=== PATIENT | female | born 1995 | race Caucasian/White ===

== ENCOUNTER → 2021-03-23 | Outpatient (CLI) | payer BC ==
[~2021-03-23] MED LIST: ALPR0.25 PO; ALPR1TAB2 PO; ASP325TEC PO; Acetaminophen PO; Diazepam PO; FERR-57 PO; FERR159T2 PO; Ferrous Sulfate PO; IBP600T1 PO; LEVO75TA PO; LVT.05T PO; OXC5T PO; SENN1TAB76 PO; ZOLP10TA5 PO
--- NOTE | 2021-03-23 16:13 | Diagnostic Imaging Report ---
INDICATION: Pain. EXAMINATION: Left ankle, 03/23/2021. FINDINGS: There is soft tissue swelling about the ankle. The ankle mortise and talar dome appear intact. There is no fracture or dislocation. IMPRESSION: Diffuse soft tissue swelling with no acute fracture or dislocation appreciated. If there is continued pain or patient cannot bear weight, 7-10 day follow-up recommended. Dictated by: Dictated on workstation # [id number]
== END ==
LOC: RAD 13:51
PROVIDERS: ATTEND Nurse Practitioner Family
DX: M25.472 Effusion, left ankle (principal); M25.572 Pain in left ankle and joints of left foot
CPT/HCPCS: 73610

== ENCOUNTER 2021-07-16 10:24 | Outpatient (CLI) | payer BC ==
[~2021-07-16] VITALS: Ht 165.1 cm; Wt 115.7 kg
[2021-07-16 10:20] VITALS: BP 133/81
[2021-07-16 10:27] VITALS: BP 123/95
[2021-07-16] MEDS ORDERED: diphenhydrAMINE 50 MG/ML INJ (BENADRYL) IV PRN (10:30)
[2021-07-16] MEDS ORDERED: ONDANSETRON 4 MG/2 ML (SDV) Z0FRAN IV PRN (10:30)
[2021-07-16] MEDS ORDERED: SOTROVIMAB 500 MG/NS 100 ML IVPB IV ONE ×2 (10:30)
[2021-07-16] MEDS ORDERED: ACETAMINOPHEN 500 MG TAB (TYLENOL) PO PRN (10:30)
[2021-07-16] MEDS ORDERED: EPINEPHrine INJECTION 1 MG/ML AMP IM PRN (10:30)
[2021-07-16 11:44] VITALS: BP 129/95
== END 2021-07-16 11:50 ==
LOC: INFUSION 10:24
PROVIDERS: ATTEND Physician Assistant
DX: U07.1 COVID-19 (principal); E66.9 Obesity, unspecified

== ENCOUNTER → 2022-06-20 | Outpatient (CLI) | payer BC ==
--- NOTE | 2022-06-20 15:23 | Diagnostic Imaging Report ---
PROCEDURE: Pelvic comp/transvaginal sonogram. TECHNIQUE: Complete transabdominal and transvaginal pelvic ultrasound was performed. In addition, limited pelvic Doppler was performed. INDICATION: Pelvic pain. Uterus is anteverted measuring 7.6 x 3.4 x 4.4 cm. Endometrium is 4 mm in thickness. No myometrial mass is detected. Right ovary measures 3.4 x 2.4 x 2.6 cm and the left ovary measures 3.1 x 1.8 x 2.5 cm. Both ovaries contain follicles. Both ovaries demonstrate normal blood flow. No adnexal mass or free fluid is detected. IMPRESSION: Unremarkable transabdominal and transvaginal pelvic ultrasound with limited pelvic Doppler. Dictated by: Dictated on workstation # [id number]
== END ==
LOC: RAD 13:34
PROVIDERS: ATTEND Surgery
DX: N93.8 Other specified abnormal uterine and vaginal bleeding (principal)
CPT/HCPCS: 76830; 76856

== ENCOUNTER 2022-08-20 05:35 | Outpatient (CLI) | payer BC ==
[~2022-08-20] VITALS: Ht 165.1 cm; Wt 93.2 kg
[2022-08-20] MEDS ORDERED: SEMA3TAB4 PO (14:34)
[2022-08-20] MEDS ORDERED: DIVA125T2 PO (14:34)
[2022-08-20] MEDS ORDERED: OMEG-154 PO (14:34)
[2022-08-20] MEDS ORDERED: BIOT1TAB PO (14:34)
[2022-08-20] MEDS ORDERED: ONDA4TAB11 SL (14:34)
[2022-08-20] MEDS ORDERED: LISD50CA PO (14:34)
[2022-08-20] MEDS ORDERED: ALPR0.5T7 PO (14:34)
[2022-08-20] MEDS ORDERED: ASTA4CAP PO (14:34)
[2022-08-20] MEDS ORDERED: LEVO150T PO (14:34)
== END 2022-08-20 14:50 ==
LOC: PREOP 05:35
PROVIDERS: ATTEND Obstetrics & Gynecology
DX: Z01.818 Encounter for other preprocedural examination (principal)

== ENCOUNTER 2022-08-27 09:02 | Day surgery (SDC) | payer BC ==
[2022-08-27] VITALS (10 sets, daily range): BP systolic 109–145; BP diastolic 72–99
[~2022-08-27] VITALS: Ht 165.1 cm; Wt 93.2 kg
[~2022-08-27 09:02] MED LIST changes: +ALPR0.5T7 PO; +ASTA4CAP PO; +BIOT1TAB PO; +DIVA125T2 PO; +LEVO150T PO; +LISD50CA PO; +OMEG-154 PO; +ONDA4TAB11 SL; +SEMA3TAB4 PO
[2022-08-27] MEDS ORDERED: BUP/EPI 0.25% 1:200,000 (MARCAINE) 30 ML VIAL ONE (09:36)
[2022-08-27 09:53] LABS: BASOPHILS % (AUTO) 0 % (0-10); EOSINOPHILS # (AUTO) 0.1 10^3/uL (0.0-0.3); EOSINOPHILS % (AUTO) 2 % (0-10); HEMATOCRIT 45 % (35-52); HEMOGLOBIN 14.7 g/dL (11.5-16.0); LYMPHOCYTES # (AUTO) 1.5 10^3/uL (1.0-4.0); LYMPHOCYTES % (AUTO) 25 % (12-44); MEAN CORPUSCULAR HEMOGLOBIN 27 pg (25-34); MEAN CORPUSCULAR HGB CONC 33 g/dL (32-36); MEAN CORPUSCULAR VOLUME 84 fL (80-99); MEAN PLATELET VOLUME 10.5 fL (9.0-12.2); MONOCYTES # (AUTO) 0.4 10^3/uL (0.0-1.0); MONOCYTES % (AUTO) 7 % (0-12); NEUTROPHILS # (AUTO) 3.9 10^3/uL (1.8-7.8); NEUTROPHILS % (AUTO) 66 % (42-75); PLATELET COUNT 270 10^3/uL (130-400); WHITE BLOOD COUNT 5.9 10^3/uL (4.3-11.0)
[2022-08-27] MEDS ORDERED: LACTATED RINGERS 1,000 ML IV PRN (10:00)
[2022-08-27] MEDS ORDERED: OXYB5TAB13 PO (10:13)
[2022-08-27] MEDS ORDERED: BUP/EPI 0.25% 1:200,000 (MARCAINE) 30 ML VIAL INJ ONE (10:22)
[2022-08-27] MEDS ORDERED: proPOfol 200 MG/20 ML (DIPRIVAN) VIAL IV ONE (10:45)
[2022-08-27] MEDS ORDERED: MIDAZOLAM 2 MG/2 ML (VERSED) VIAL ONE (10:45)
[2022-08-27] MEDS ORDERED: ONDANSETRON 4 MG/2 ML (SDV) Z0FRAN ONE (10:45)
[2022-08-27] MEDS ORDERED: fentaNYL INJ 100 MCG/2 ML AMP ONE (10:45)
[2022-08-27] MEDS ORDERED: LIDOCAINE PF 2% 5 ML (XYLOCAINE) VIAL ONE (10:45)
[2022-08-27] MEDS ORDERED: morphine INJ 10 MG/ML 1ML (SYR OR VIAL) IVP ONE (11:00)
[2022-08-27] MEDS ORDERED: HYDROmorphone 2 MG/ML VIAL (DILAUDID) IV ONE (11:00)
[2022-08-27] MEDS ORDERED: ONDANSETRON 4 MG/2 ML (SDV) Z0FRAN IVP PRN ×2 (11:00→11:15)
--- NOTE | 2022-08-27 11:02 | Progress Note-Pre Operative ---
Pre-Operative Progress Note Date of Available H&P: Aug 27, 2022 Date H&P Reviewed: Aug 27, 2022 Time H&P Reviewed: 10:00 History & Physical: H&P Reviewed, Patient Examed, No changes noted Pre-Operative Diagnosis: HGSIL/CIN3 JEFRY MONTES DO Aug 27, 2022 11:02
--- NOTE | 2022-08-27 11:05 | Discharge Inst-Women's Service ---
Discharge Inst-Women's Serv Depart Medication/Instructions New, Converted or Re-Newed RX: Transmitted to Pharmacy Problems Reviewed?: Yes Consults/Follow Up Additional Follow Up: Yes Orders/Referrals Dr. Montes in 2 weeks Activity Activity: Activity as Tolerated Driving Instructions: No Driving for 1 Week NO SMOKING: NO SMOKING Nothing Inside Vagina: No Douching, No [place], No Tampons Diet Discharge Diet: No Restrictions Symptoms to Report to : Bleeding Excessive, Pain Increased, Fever Over 101 Degrees F, Vaginal Bleeding Increase, Questions/Concerns For Any Problems or Questions: Contact Your Physician JEFRY MONTES DO Aug 27, 2022 11:05
[2022-08-27] MEDS ORDERED: ACHD5005 PO (11:07)
[2022-08-27] MEDS ORDERED: IBUP-844 PO (11:07)
[2022-08-27] MEDS ORDERED: IBUPROFEN 600 MG (MOTRIN) TAB PO PRN (11:15)
[2022-08-27] MEDS ORDERED: D5 LR IV SOLUTION 1,000 ML IV SCH (11:15)
[2022-08-27] MEDS ORDERED: KETOROLAC 30 MG/ML VIAL IVP ONE (11:15)
[2022-08-27] MEDS ORDERED: HYDROcodone/APAP 5 MG/325 MG (LORTAB) TAB PO PRN (11:15)
[2022-08-27] MEDS ORDERED: morphine INJ 10 MG/ML 1ML (SYR OR VIAL) ONE (12:11)
[2022-08-27] MEDS ORDERED: SEVOFLURANE (ULTANE) 15 ML INHAL SOLN ONE (12:17)
--- NOTE | 2022-08-27 12:25 | Anesthesia-General Post-Op ---
General Patient Condition Mental Status/LOC: Same as Preop Cardiovascular: Satisfactory Nausea/Vomiting: Absent Respiratory: Satisfactory Pain: Controlled Complications: Absent Post Op Complications Complications None Follow Up Care/Instructions Patient Instructions None needed. Anesthesia/Patient Condition Patient Condition Patient is awake and doing well in PACU with no complaints, stable vital signs, no apparent adverse anesthesia problems. No complications reported per nursing. BRETT SCHULTE DO Aug 27, 2022 12:25
--- NOTE | 2022-08-27 16:10 | OPERATIVE REPORT ---
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 PROCEDURE: Cold knife conization. SURGEON: Dr. Madan Dominguez. ANESTHESIA: LMA general. ESTIMATED BLOOD LOSS: Minimal. URINE OUTPUT: 300 mL clear at the end of the procedure. FLUIDS: 800 mL lactated Ringer's solution. FINDINGS: Extension of high-grade dysplasia. Grossly normal-appearing external female genitalia, otherwise. SPECIMEN SENT: Conization of the cervix. INDICATIONS FOR PROCEDURE: This 26-year-old female was a patient who had sought care in my office. 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 Discussed with the patient proceeding with conization biopsy. Cold knife conization was recommended due to the concern of potential invasive malignancy. Risk of the procedure was discussed with the patient in detail and after all of her questions were answered, consent was obtained. The patient was taken to the operating room. OPERATIVE REPORT IN DETAIL: Once in the operating room, anesthesia was administered and found to be adequate. She was placed in the dorsal lithotomy position, prepped and draped in normal sterile fashion. Weighted speculum inserted to the patient's vagina. Right angle retractor was used to visualize the cervix which was grasped at 12 o'clock position using a single tooth tenaculum. I then stained the cervix using Lugol's solution and the areas of dysplasia can be identified up to the margins of the discontinuation of staining squamous epithelium. I then performed lateral 0 Vicryl sutures, sutures at 3 and 9 o'clock position on the cervix to help with bleeding during the procedure. I also injected the stroma of the cervix using Marcaine with epinephrine. A total of 20 mL were injected into the entire cervical stroma. I then make a circular incision with an 11 blade knife around the margins that can be identified after Lugol staining was performed. After this was done, I then excised deeply using curved Tate scissors to the endocervix creating a cone-shaped biopsy. This specimen is sent as cervical cone biopsy. I then cauterized all margins of dissection using a ball cautery until no active bleeding was noted. I then placed 3 separate Sturmdorf stitches around the cervix using 2-0 Vicryl suture, which both closes the cervical dissection bed and controls bleeding. Finally, I covered the planes of dissection using Astrn[employer] in order to control bleeding postoperatively, after which there was no active bleeding noted from any of my dissection planes. All instruments were removed from the patient's vagina. The patient tolerated the procedure well and was taken to recovery area in stable condition. Lap and sponge counts were correct at the end of the procedure. Instrument counts correct as well. Job ID: [id number] DocumentID: [id number] Dictated Date: 08/27/2022 12:27:49 Agent Based Modeler Date: 08/27/2022 16:08:00 Dictated By: DO CRIS PINA
== END 2022-08-27 13:55 | disposition home or self-care (01) ==
LOC: SDC 09:02
PROVIDERS: ATTEND Obstetrics & Gynecology
DX: D06.0 Carcinoma in situ of endocervix (principal); Z28.310 Unvaccinated for COVID-19
CPT/HCPCS: 36415; 82947; 84703; 85025; 86850; 86900; 86901; 87081